=== PATIENT | male | born 1970 | race Two or more races ===

== ENCOUNTER 2021-04-17 15:10 | Emergency (ER) | payer SELFPAY ==
[~2021-04-17] VITALS: Ht 170.2 cm; Wt 68.0 kg
--- NOTE | 2021-04-17 15:10 | NUR ---
Pt was brought in by [id number] with c/o alcohol intoxication. Per EMS pt was found sleeping on the sidewalk in front of [facility]. Per EMS pt is not being treated at [facility] per their staff. Pt placed in room 3, and ER staff at bedside upon arrival.
[2021-04-17] MEDS: LORAZEPAM 2 MG/1 ML VIAL IM ONE ×2 (15:42→15:48)
[2021-04-17] MEDS ORDERED: LORAZEPAM 2 MG/1 ML VIAL ONE (15:49)
[2021-04-17 15:56] LABS: HEMATOCRIT 37.1 % (36.7-47.1); MEAN CORPUSCULAR HEMOGLOBIN 30.4 uug (23.8-33.4); MEAN CORPUSCULAR VOLUME 91.5 fL (73.0-96.2); PLATELET COUNT (AUTO) 382 K/uL (152-348)
[2021-04-17 16:04] LABS: CREATININE 0.8 mg/dL (0.6-1.3)
[2021-04-17 16:11] LABS: ETHANOL 374 MG/DL (0-0)
[2021-04-17 16:12] LABS: *AMPHETAMINE, URINE NEGATIVE (NEGATIVE); *CANNABINOID, URINE POSITIVE (NEGATIVE); *COCCAINE, URINE NEGATIVE (NEGATIVE); *OPIATE, URINE NEGATIVE (NEGATIVE); *PHENCYCLIDINE SCREEN,URINE NEGATIVE (NEGATIVE)
[2021-04-17 16:14] LABS: BILIRUBIN,TOTAL 0.6 mg/dL (0.2-1.0); TOTAL PROTEIN, SERUM 7.8 g/dL (6.4-8.2)
[2021-04-17 16:15] LABS: ACETAMINOPHEN < 2.0 ug/mL (10-30)
--- NOTE | 2021-04-17 17:45 | NUR ---
Pt requested to go to the restroom, pt had unsteady gait when he stood up. Pt was placed back in [facility] and given a urinal.
[2021-04-17] MEDS ORDERED: POTASSIUM CHLORIDE 20 MEQ TAB.PRT.SR PO ONE (18:45)
[2021-04-17] MEDS ORDERED: IV NS 1000 ML 1,000 ML IV ONE (18:45)
[2021-04-17] MEDS ORDERED: FOLIC ACID 5 MG/ML VIAL IV ONE (18:45)
[2021-04-17] MEDS ORDERED: THIAMINE HCL 200 MG/2 ML VIAL IV ONE (18:45)
[2021-04-17] MEDS ORDERED: MAGNESIUM SULFATE/D5W 100 ML ONE ×2 (19:21→20:08)
[2021-04-17] MEDS: MAGNESIUM SULFATE/D5W 100 ML IV SCH ×2 (19:25→20:09)
--- NOTE | 2021-04-18 06:20 | NUR ---
accu chek done, blood glucose of 77
--- NOTE | 2021-04-18 06:37 | NUR ---
IV removed. Catheter intact and site benign. Pressure and 4x4 gauze applied to site. No bleeding noted.
[2021-04-18] MEDS ORDERED: CHLORDIAZEPOXIDE HCL 25 MG CAPSULE PO ONE (06:45)
[2021-04-18] MEDS ORDERED: CHLORDIAZEPOXIDE HCL 5 MG CAPSULE ONE (06:52)
--- NOTE | 2021-04-18 06:55 | NUR ---
Patient discharged to home in stable condition. Written and verbal after care instructions given. Patient verbalizes understanding of instructions. Stressed follow up or return to ER for worsening s/s.
[2021-04-18 06:59] VITALS: BP 107/90
== END 2021-04-18 06:59 | disposition home or self-care (01) ==
LOC: ER 15:10
DX: F10.229 Alcohol dependence with intoxication, unspecified (principal); Y90.8 Blood alcohol level of 240 mg/100 ml or more; R03.0 Elevated blood-pressure reading, without diagnosis of hypertension
CPT/HCPCS: 36415; 70450; 80053; 80179; 80299; 80307; 80320; 85025; 96365; 96366; 96368; 96372; 96375; 99284; J2060; J3411; J3475 ×2; J3490; A4663; G0480; J7030; J8499